=== PATIENT | female | born 1955 | race Caucasian/White ===

== ENCOUNTER 2017-10-12 12:27 | Emergency (ER) | payer SELFPAY ==
[~2017-10-12] VITALS: Ht 165.1 cm; Wt 90.1 kg
[2017-10-12 12:33] VITALS: BP 137/91
[2017-10-12] MEDS ORDERED: MECLIZINE CHEWABLE 25 MG TAB PO ONE (13:00)
[2017-10-12] MEDS ORDERED: ONDANSETRON ODT 4 MG PO ONE (13:00)
[2017-10-12] MEDS ORDERED: MECLIZINE CHEWABLE 25 MG TAB ONE (13:16)
[2017-10-12] MEDS ORDERED: ONDANSETRON ODT 4 MG ONE (13:16)
[2017-10-12 13:26] LABS: BASOPHILS # (AUTO) 0.04 x10^3/uL (0-0.1); BASOPHILS % (AUTO) 1 % (0-1); EOSINOPHILS % (AUTO) 1 % (1-7); LYMPHOCYTES # (AUTO) 1.92 x10^3/uL (1-3.4); LYMPHOCYTES % (AUTO) 25 % (22-44); MD NO; MEAN CORPUSCULAR HEMOGLOBIN 30.4 pg (27.0-34.8); MEAN CORPUSCULAR HGB CONC 34.1 g/dL (32.4-35.8); MEAN CORPUSCULAR VOLUME 89.1 fL (80-100); MEAN PLATELET VOLUME 9.1 fL (7.4-10.4); MONOCYTES # (AUTO) 0.75 x10^3/uL (0.2-0.8); MONOCYTES % (AUTO) 10 % (2-9); NEUTROPHILS # (AUTO) 4.78 x10^3/uL (1.8-6.8); NEUTROPHILS % (AUTO) 63 % (42-75); PLATELET COUNT 251 x10^3/uL (130-400); RED BLOOD COUNT 4.36 x10^6/uL (3.82-5.3); RED CELL DISTRIBUTION WIDTH 12.9 % (9.6-15.2)
[2017-10-12 13:32] LABS: ALBUMIN 3.9 g/dL (3.4-5.0); ANION GAP 5 mmol/L (5-15); CALCIUM 9.2 mg/dL (8.5-10.1); CHLORIDE 111 mmol/L (98-107); CREATININE 0.76 mg/dL (0.55-1.02)
== END 2017-10-12 14:37 | disposition home or self-care (01) ==
LOC: ED 13:37
DX: H81.311 Aural vertigo, right ear (principal); H81.11 Benign paroxysmal vertigo, right ear
CPT/HCPCS: 36415; 70450; 80048; 82040; 85025; 93005; 99285; Q0162